=== PATIENT | female | born 1970 | race Hispanic/Latino ===

== ENCOUNTER → 2017-11-05 | Outpatient (CLI) | payer OTHER ==
--- NOTE | 2017-11-14 08:25 | Diagnostic Imaging Report ---
#[id number] - [id number] #BILATERAL DIGITAL SCREENING MAMMOGRAM WITH CAD: 11/05/2017 CLINICAL: Routine screening. Comparison is made to exams dated: 08/23/2016 mammogram, 08/23/2015 mammogram and 10/02/2016 ultrasound- [facility]. Current study contains 4 films. The tissue of both breasts is heterogeneously dense. This may lower the sensitivity of mammography. Current study was also evaluated with a Computer Aided Detection (CAD) system. There is a benign intramammary node in the right breast. No significant masses, calcifications, or other findings are seen in either breast. There has been no significant interval change. A left breast ultrasound as additional evaluation for dense breasts performed September 2016 revealed a hypoechoic nodule in the left breast of which an MRI was recommended. By the patient's history a biopsy was performed and was reported as benign. No images or actual reports are available at this time to refer to concerning this issue. IMPRESSION: BENIGN There is no mammographic evidence of malignancy. A 1 year screening mammogram is recommended. The patient will be notified by letter of the results. Clement Anguiano Jr., D.O. cw/:11/13/2017 13:47:21 [employer] Manager: Roseanna WEISS(Jus)(M), [facility] letter sent: Compared to Prior B9 Mammogram BI-RADS: 2 Benign
== END ==
LOC: MAMMO 08:15
PROVIDERS: ATTEND Family Medicine
DX: Z12.31 Encounter for screening mammogram for malignant neoplasm of breast (principal)

== ENCOUNTER → 2018-10-28 | Outpatient (CLI) | payer OTHER | LOC: MAMMO 08:45 | PROVIDERS: ATTEND Family Medicine | DX: Z12.31 Encounter for screening mammogram for malignant neoplasm of breast (principal) | CPT/HCPCS: 77067 ==

== ENCOUNTER → 2019-03-03 | Outpatient (CLI) | payer OTHER ==
--- NOTE | 2019-03-03 08:16 | Diagnostic Imaging Report ---
EXAM: US ABDOMEN COMPLETE DATE: 03/03/2019 7:20 AM Time stamp on exam: INDICATION: Elevated liver enzymes COMPARISON: None TECHNIQUE: Transverse and longitudinal medrano scale and color doppler sonographic images of the upper abdomen were obtained. FINDINGS: LIVER 13.1 cm in the right midclavicular line. Normal echogenicity, normal contour, no masses. SPLEEN 9.5 cm in maximum diameter. Normal echogenicity, no masses. GALLBLADDER No stones, sludge, wall-thickening or pericholecystic fluid. Negative sonographic Mayen's sign. BILE DUCTS No intra nor extra-hepatic biliary dilation. Common bile duct measures 0.3 cm PANCREAS: Visualized portions are normal. RIGHT KIDNEY: 10.7 cm Echogenicity: Normal Collecting System: No hydronephrosis Stones: None Cyst/Mass: None LEFT KIDNEY: 9.6 cm Echogenicity: Normal Collecting System: No hydronephrosis Stones: None Cyst/Mass: None VESSELS: Aorta: Nonaneurysmal Inferior Vena Cava: Patent Main Portal Vein: 0.6 cm, normal size with hepatopetal flow. FREE FLUID: None IMPRESSION: Unremarkable abdominal ultrasound. Signed by: Dr. Cody Mac M.D. on 03/03/2019 8:12 AM
== END ==
LOC: US 07:01
PROVIDERS: ATTEND Internal Medicine Gastroenterology
DX: R74.8 Abnormal levels of other serum enzymes (principal)
CPT/HCPCS: 76700

== ENCOUNTER → 2019-10-20 | Outpatient (CLI) | payer OTHER | LOC: MAMMO 12:31 | PROVIDERS: ATTEND Family Medicine | DX: Z12.31 Encounter for screening mammogram for malignant neoplasm of breast (principal) | CPT/HCPCS: 77067 ==

== ENCOUNTER → 2020-11-15 | Outpatient (CLI) | payer SELFPAY | LOC: MAMMO 08:34 | PROVIDERS: ATTEND Family Medicine | DX: Z12.31 Encounter for screening mammogram for malignant neoplasm of breast (principal) | CPT/HCPCS: 77067 ==